=== PATIENT | female | born 1955 | race Caucasian/White ===

== ENCOUNTER → 2018-04-29 06:56 | Outpatient (CLI) | payer MEDICARE ==
[2014-03-18 07:53] VITALS: BMI 33.0
[~2018-04-29 06:56] MED LIST: AMBIEN10 MG PO; ATIVAN1 MG PO; CARAFATE1 G PO; DIOVAN160 MG PO; ESTRACE1 MG PO; EXFORGE 5-160 M1 TAB PO; HYDROCODONE-APA1 TAB PO; NEURONTIN 300300 MG PO; NUCYNTA50 MG PO; PHENERGAN25 M1 PO; PROTONIX40 MG PO; REGLAN10 MG PO; VALSART/HCTZ TAB 160
== END | disposition home or self-care (01) ==
LOC: D.MRI 06:56
DX: M25.561 Pain in right knee (principal)

== ENCOUNTER 2018-05-16 11:25 | Day surgery (SDC) | payer MEDICARE ==
[2018-05-15 16:20] LABS: HEMATOCRIT 43.5 % (36.0-48.0); HEMOGLOBIN 14.9 g/dL (12-16); MCH 30.9 pg (26.0-34.0); MCHC 34.3 g/dL (31.0-37.0); MCV 90.2 fL (80.0-100.0); RBC 4.82 10x6/uL (4.00-5.40); RDW 12.9 % (11.5-14.5); WBC 8.1 10x3/uL (4.8-10.8)
[~2018-05-16] VITALS: Ht 154.9 cm; Wt 83.0 kg
--- NOTE | ~2018-05-16 | OP ---
PATIENT NAME: ADELFO DENISE MEDICAL RECORD: [id number] :57 LOCATION:D.OPS ADMISSION DATE: SURGEON: PRASHANT LUNSFORD DO DATE OF OPERATION: 05/16/2018 PROCEDURE PERFORMED: Right knee arthroscopy with plica excision, partial lateral meniscectomy and loose body removal. PREOPERATIVE DIAGNOSIS: Right knee pain with a loose body. POSTOPERATIVE DIAGNOSIS: Right knee loose body, lateral meniscal tear, and plica band. INDICATIONS: Ms. Denise is a 62-year-old female that presented to my office having right knee pain for quite some time. It was catching and locking on her and she was not able to bear weight without pain. She had a CT done by her primary care, which showed a loose body in the medial compartment and unknown what it was. The patient said she was tired of dealing with it. She could not have MRI due to the gastric stimulator in her body, so having the CT that showed a loose body. She was tender along the medial joint line as well on exam and had problems with full range of motion without pain. I informed her we could scope the knee and we can remove whatever loose body there may have been or was and checked the rest of the knee out. She is okay with that plan and is aware of the risks and benefits including infection, bleeding, damage to nerve or vessels, need for further surgery and continued pain. She signed consent. SURGEON: Prashant Lunsford DO DESCRIPTION OF THE PROCEDURE: The patient was taken to the operative suite, laid in supine position, given general anesthetic. The right knee was prepped and draped in sterile fashion and a timeout was performed, everyone was in agreement with the correct side, site, patient and procedure. The patient was given 2 grams Ancef preoperatively. After a timeout was performed, the incision began over the lateral portal with an 11-blade scalpel after medial and lateral to the patellar tendon was injected with 0.5% Marcaine with epinephrine. Then, the trocar was entered in the knee. The suprapatellar pouch was inspected. No loose body is seen there. Lateral gutter, no loose bodies. Medial gutter, no loose bodies. There was, however, upon inspection, a large plica band over the medial condyle, which was rubbing with motion of the knee and then the medial joint was entered. A medial portal was established with an 18-gauge spinal needle, then an 11 blade scalpel and a trocar and a probe was placed into the knee. The loose body was seen just anterior to the medial femoral condyle and the soft tissue appeared to be very soft. This was taken down with a shaver and then the medial meniscus was inspected with a probe. No tear was seen. The ACL was inspected and no tears. The lateral compartment was then entered with [id number] in the leg and there was a tear in the very inner aspect of the medial meniscus along the middle third. This was chewed out to back to a stable position with the shaver. Then, the shaver was brought up into the suprapatellar pouch and over the medial condyle where the plica was and plica was excised with a shaver. No other loose bodies were seen in the knee. The water was turned off, suction turned on and excess fluid was removed from the knee. The patient tolerated the procedure well. The portal sites were closed with 3-0 Monocryl in an inverted interrupted fashion. Steri-Strips, Adaptic, 4 x 4's, ABD, Webril, Ashish wrap and ÁNGELA hose stocking was placed up to the knee. The patient was awakened and taken to recovery in stable condition. No OPERATIVE REPORT [id number] ADELFO DENISE complications. The blood loss was minimal. TRANSINT:[id number] Voice Confirmation ID: [id number] DOCUMENT ID: [id number] PRASHANT LUNSFORD DO at 0921 CC: [id number] DICTATION DATE: 05/16/18 1603 PEST TECHNICIAN: 05/16/18 2204 [facility] 05/16/18 [id number] [place] [address]
[2018-05-16] MEDS ORDERED: ZOFRAN8 MG PO (12:56)
[2018-05-16 12:57] VITALS: BP 119/69; Ht 154.9 cm; Wt 83.0 kg
[2018-05-16] MEDS ORDERED: PERCOCET 5-3251 TAB PO (15:58)
== END 2018-05-16 18:00 | disposition home or self-care (01) ==
LOC: D.OPS 11:25 → D.PAN 13:30 → D.OPS 15:30 → D.PAN 15:30 → D.OPS 18:00
PROVIDERS: Anesthesiology
DX: S83.281A Other tear of lateral meniscus, current injury, right knee, initial encounter (principal); M67.51 Plica syndrome, right knee; Z01.812 Encounter for preprocedural laboratory examination